=== PATIENT | female | born 1980 | race Caucasian/White ===

== ENCOUNTER 2024-05-19 17:21 | Emergency (ER) | payer MEDICAID, SELFPAY ==
[2024-05-19 17:26] VITALS: BP 121/78; PULSE 81; RESP 18; TEMP 36.5; O2SAT 99; BMI 36.8
--- NOTE | 2024-05-19 19:02 | EX.ED.DYSGE1 ---
HPI History of Present Illness Chief Complaint: Bite Detail of Chief Complaint: Redness, raised area and itching mid dorsal right forearm Informant: patient Onset/Context/Timing Onset: Days (Bit by insect 2 days ago) Context: Sudden Onset Timing: Continuous Quality: Erythematous pruritic area mid dorsal right forearm Current Severity: Mild Maximum Severity: Mild Worsened by: Itching Relieved by: Nothing Associated Symptoms Associated Symptoms: None Narrative Narrative: Patient is a 44-year-old female. 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 She was bit by insect 2 days ago. She states she had itching. She is now concerned because the area has increased in size and is raised she denies drainage from the area. She denies fever, chills night sweats. She denies any generalized allergic symptoms i.e. swelling of her lips, tongue throat. Chest pain, shortness of breath difficulty breathing. Orthostatic symptoms. Abdominal pain, nausea vomiting diarrhea. She has no other symptoms. Prior similar symptoms: No Recent Illness/Hospitalization: No [facility] Medical History Diabetes Hypertension Home Medications ?Medication ?Instructions ?Recorded ?Last Taken ?Type loratadine 10 mg tablet (Claritin) 10 mg PO DAILY #5 tabs 05/19/24 Unknown Rx Allergy/AdvReac Type Severity Reaction Status Date / Time ciprofloxacin Allergy Rash Verified 05/19/24 17:25 strawberry (strawberries) Allergy Anaphylaxis Verified 05/19/24 17:25 Family History no significant family his Social History Smoking Status: Never smoker ROS [facility] ED Constitutional Constitutional ED: Denies chills, fever(s) or subjective Musculoskeletal Musculoskeletal: Denies arthralgias, back pain, myalgias or neck pain Integumentary Reports rash; Denies abscess or Abrasions Neurologic Neurologic: Denies paresthesias or weakness Hematologic/Lymphatic Hematologic/Lymphatic: Reports systems reviewed and no addt'l complaints, except as documented EXAM Physical Exam Const Vital Signs: 05/19/24 17:26 Temperature 97.7 F L Temperature Source Temporal Pulse Rate 81 Respiratory Rate 18 Blood Pressure 121/78 H Blood Pressure Mean 92 Pulse Ox 99 Oxygen Delivery Method Room Air Positive well nourished and well developed Constitutional Narrative: BMI 36.9 General Appearance ED: well developed HEENT HEENT Narrative: There is no evidence of angioedema. HEENT exam is normal. Eyes PERRL and EOMs intact bilaterally Neck no lymphadenopathy, supple and no JVD Cardio regular rate and regular rhythm Extremity Extremity Narrative: Area of erythema the size of a nickel that is raised. There is no warmth, induration, fluctuance, lymphangitis. Patient has no epitrochlear lymphadenopathy Neuro oriented x3 and CN's II-XII intact bilaterally Sensorium / Orientation: alert Motor Exam: strength 5/5 throughout Psych mental status grossly normal Skin Rashes: rashes noted MDM MDM MDM Narrative Medical decision making narrative: Patient has a localized allergic reaction to insect bite. Will treat with Claritin. There is no indication for testing. Review of prior records indicates patient has diabetes and hypertension. She also has allergy to ciprofloxacin and strawberries. History & Record Review Additional record(s) reviewed:: Prior outpatient record Discharge Plan Triage Chief Complaint: Bite ED Provider: Chas Goldberg Dx/Rx/DC Orders Clinical Impression: Allergic reaction, Insect bite, History of hypertension, History of diabetes mellitus Instructions: ED Insect Sting, Local Reaction Prescriptions: New loratadine [Claritin] 10 mg tablet 10 mg PO DAILY Qty: 5 0RF Primary Care Provider: Care Physician,No Primary Referrals: Care Physician,No Primary [Primary Care Provider] - Doctor,Your [Non-Staff] - As Needed Print Language: Romansh Disposition Disposition: Home, Self Care
== END 2024-05-19 19:17 | disposition home or self-care (01) ==
PROVIDERS: Emergency Provider Emergency Medicine; Visit Provider Emergency Medicine
DX: T78.49XA Other allergy, initial encounter (principal); E11.9 Type 2 diabetes mellitus without complications; I10 Essential (primary) hypertension
CPT/HCPCS: 99282